=== PATIENT | female | born 1975 | race Caucasian/White ===

== ENCOUNTER 2016-10-18 16:20 | Emergency (ER) | payer OTHER ==
[~2016-10-18 16:20] MED LIST: EMTRICITABINE/TENOFOVIR 200MG/300MG TAB PO SCH; RALTEGRAVIR 400 MG TAB PO SCH
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
[2016-10-18] MEDS ORDERED: CEFTRIAXONE IM 350 MG/ML SYRINGE IM ONE (19:30)
[2016-10-18] MEDS ORDERED: AZITHROMYCIN 250 MG TAB PO ONE (19:30)
[2016-10-18] MEDS ORDERED: ULIPRISTAL ACETATE 30 MG TAB PO ONE (19:30)
[2016-10-18] MEDS ORDERED: RALTEGRAVIR 400 MG TAB PO ONE (21:25)
[2016-10-18 23:28] VITALS: BP 130/94; PULSE 88; RESP 16; TEMP 98.2; O2SAT 96
[2016-10-19] MEDS ORDERED: EMTRICITABINE/TENOFOVIR 200MG/300MG TAB PO ONE (21:25)
== END 2016-10-18 23:00 | disposition home or self-care (01) ==
LOC: SANE 16:20 → EEVIPCON 16:20 → SANE 23:00
DX: T76.21XA Adult sexual abuse, suspected, initial encounter (principal); Z87.891 Personal history of nicotine dependence
CPT/HCPCS: J0696